=== PATIENT | female | born 1985 | race Caucasian/White ===

== ENCOUNTER 2018-07-05 17:31 | Emergency (ER) | payer MEDICAID ==
[2018-07-05 17:43] VITALS: BP 123/87; PULSE 71; RESP 18; TEMP 97.8; O2SAT 98
--- NOTE | 2018-07-05 18:34 | C.PDOC ---
History Of Present Illness 33 year old female with no PMHx presents to the ED complaining of shoulder and neck pain for the past week. Patient states initially pain was localized to the bilateral shoulders, and she was using lidocaine cream with moderate relief. The right side improved but she developed left-sided neck pain for the last 2 days, which radiates into her left shoulder. Pain is now not relieved with the cream. Patient has not tried any other pain medications. Otherwise denies any headache, fever, chills, nausea, vomiting, diarrhea, chest pain, SOB, or abdominal pain. Denies recent illness. No known sick contacts. Time Seen by Provider: 07/05/18 19:05 Chief Complaint (Nursing): Upper Extremity Problem/Injury History Per: Patient History/Exam Limitations: no limitations Onset/Duration Of Symptoms: Days (7) Current Symptoms Are (Timing): Still Present Past Medical History Reviewed: Historical Data, Nursing Documentation, Vital Signs Vital Signs: Last Vital Signs Temp 97.8 F 07/05/18 17:40 Pulse 71 07/05/18 17:40 Resp 18 07/05/18 17:40 BP 123/87 07/05/18 17:40 Pulse Ox 98 07/05/18 17:40 - Medical History PMH: Hyperthyroidism Surgical History: Cholecystectomy, Tonsillectomy Family History: States: Unknown Family Hx - Social History Hx Alcohol Use: No Hx Substance Use: No - Immunization History Hx Tetanus Toxoid Vaccination: No Hx Influenza Vaccination: No Hx Pneumococcal Vaccination: No Review Of Systems Except As Marked, All Systems Reviewed And Found Negative. Constitutional: Negative for: Fever, Chills Cardiovascular: Negative for: Chest Pain Respiratory: Negative for: Cough, Shortness of Breath Gastrointestinal: Negative for: Nausea, Vomiting, Abdominal Pain, Diarrhea Musculoskeletal: Positive for: Neck Pain (left), Shoulder Pain (left) Skin: Negative for: Rash Neurological: Negative for: Weakness, Numbness, Headache, Dizziness Physical Exam - Physical Exam Appears: Non-toxic, No Acute Distress Skin: Warm, Dry, No Rash Head: Atraumatic, Normacephalic Eye(s): bilateral: Normal Inspection, PERRL, EOMI Oral Mucosa: Moist Throat: Normal, No Erythema, No Drooling Neck: Normal ROM, Other (enlarged thyroid on left; no meningeal signs) Chest: Symmetrical Cardiovascular: Rhythm Regular, No Murmur Respiratory: Normal Breath Sounds, No Accessory Muscle Use, Other (Speaking in complete sentences) Gastrointestinal/Abdominal: Soft, No Tenderness, No Distention Back: No CVA Tenderness, No Vertebral Tenderness, Other (Tender to palpation to left trapezius) Extremity: Bilateral: Atraumatic, Normal ROM Pulses: Left Dorsalis Pedis: Normal, Right Dorsalis Pedis: Normal Neurological/Psych: Oriented x3 ED Course And Treatment O2 Sat by Pulse Oximetry: 98 (RA) Pulse Ox Interpretation: Normal Medical Decision Making Medical Decision Making: Impression: Left trapezius pain Initial Plan: - 2 mg Valium PO - 550 mg Naproxen PO - C-spine x-ray Disposition Counseled Patient/Family Regarding: Studies Performed, Diagnosis, Need For Followup, Rx Given - Disposition Referrals: April Mirza MD [Staff Provider] - Disposition: HOME/ ROUTINE Disposition Time: 20:40 Condition: IMPROVED Additional Instructions: CHANDRIKA CARABALLO, thank you for letting us take care of you today. Your provider was Arvind Correia MD and you were treated for NECK/SHOULDER PAIN. The emergency medical care you received today was directed at your acute symptoms. If you were prescribed any medication, please fill it and take as directed. It may take several days for your symptoms to resolve. Return to the Emergency Department if your symptoms worsen, do not improve, or if you have any other problems. Please contact your doctor or call one of the physicians/clinics you have been referred to that are listed on the Patient Visit Information form that is included in your discharge packet. Bring any paperwork you were given at discharge with you along with any medications you are taking to your follow up visit. Our treatment cannot replace ongoing medical care by a primary care provider outside of the emergency department. Thank you for allowing the [facility] team to be part of your care today. Prescriptions: Cyclobenzaprine [Flexeril] 5 mg PO TID PRN #30 tab PRN Reason: Muscle Spasm Naproxen [Naprosyn] 500 mg PO BID #30 tablet Instructions: Muscle Strain (DC), Generalized Neck Pain (DC) Forms: [employer] ([place]) - Clinical Impression Clinical Impression: Neck pain on left side, Muscle strain of left shoulder - PA / GROCERY CARRIER / Resident Statement MD/DO has reviewed & agrees with the documentation as recorded. - Scribe Statement The provider has reviewed the documentation as recorded by the Vianneyibjesus Bran All medical record entries made by the Scribjesus were at my direction and personally dictated by me. I have reviewed the chart and agree that the record accurately reflects my personal performance of the history, physical exam, medical decision making, and the department course for this patient. I have also personally directed, reviewed, and agree with the discharge instructions and disposition.
[2018-07-05] MEDS ORDERED: Naproxen 550 mg Tab PO STA (19:10)
[2018-07-05] MEDS ORDERED: Naproxen 550 mg Tab PO ONE (19:48)
--- NOTE | 2018-07-06 09:16 | RAD ---
Date of service: 07/05/2018 PROCEDURE: Cervical Spine Radiographs. HISTORY: Pain. COMPARISON: None available. FINDINGS: BONES: Alignment maintained. No fracture. Dens Intact. Small cervical rib C7 noted DISC SPACES: Normal. SOFT TISSUES: The tracheal air column is displaced but not grossly compressed by inferred left paratracheal soft tissue pathology perhaps relating to a low enlarged left thyroid gland. Pre tracheal airway column soft tissue fullness is well OTHER FINDINGS: None. IMPRESSION: No fracture or lytic lesion. Rightward tracheal air: Deviation by inferred left paratracheal and pre tracheal soft tissue mass effect/pathology. No tracheal airway compromise. Consider soft tissue neck ultrasound study as initial evaluation with attention to the thyroid gland Comments: Study marked for PA review .
== END 2018-07-05 20:59 | disposition home or self-care (01) ==
LOC: C.ER 17:31
DX: S46.912A Strain of unspecified muscle, fascia and tendon at shoulder and upper arm level, left arm, initial encounter (principal); X58.XXXA Exposure to other specified factors, initial encounter; M54.2 Cervicalgia